=== PATIENT | male | born 1980 | race American Indian/Alaskan Native ===

== ENCOUNTER 2018-12-30 22:29 | Emergency (ER) | payer SELFPAY ==
[2018-12-30 22:45] VITALS: BP 127/91
--- NOTE | 2018-12-30 23:44 | Emergency Department Report ---
ED ENT HPI - General Chief complaint: Dental/Oral Stated complaint: TOOTHACHE Time Seen by Provider: 12/30/18 22:59 Source: patient Mode of arrival: Ambulatory Limitations: No Limitations - History of Present Illness Initial comments: Patient is a 38-year-old male presents emergency room with complaints of right upper and lower dental pain that began 3 days ago. He denies any fever, nausea, vomiting, diarrhea, any other symptoms. pt states he has had small amount of swelling to the right side of his face. States he has not seen a dentist in 2 years. He denies any past medical history. States he has an unknown allergy to penicillin. - Related Data Previous Rx's Medication Instructions Recorded Last Taken Type Clindamycin [Clindamycin CAP] 450 mg PO TID 7 Days #63 capsule 12/30/18 Unknown Rx Ibuprofen [Motrin 600 MG tab] 600 mg PO Q8H PRN #14 tablet 12/30/18 Unknown Rx Allergies Allergy/AdvReac Type Severity Reaction Status Date / Time No Known Allergies Allergy Unverified 12/30/18 22:46 ED Dental HPI - General Chief complaint: Dental/Oral Stated complaint: TOOTHACHE Time Seen by Provider: 12/30/18 22:59 Source: patient Mode of arrival: Ambulatory Limitations: No Limitations - Related Data Previous Rx's Medication Instructions Recorded Last Taken Type Clindamycin [Clindamycin CAP] 450 mg PO TID 7 Days #63 capsule 12/30/18 Unknown Rx Ibuprofen [Motrin 600 MG tab] 600 mg PO Q8H PRN #14 tablet 12/30/18 Unknown Rx Allergies Allergy/AdvReac Type Severity Reaction Status Date / Time No Known Allergies Allergy Unverified 12/30/18 22:46 ED Review of Systems ROS: Stated complaint: TOOTHACHE Other details as noted in HPI Comment: All other systems reviewed and negative ED Past Medical Hx - Past Medical History Previous Medical History?: No - Surgical History Past Surgical History?: No - Social History Smoking Status: Unknown if ever smoked Substance Use Type: None - Medications Home Medications: Home Medications Medication Instructions Recorded Confirmed Last Taken Type Clindamycin [Clindamycin CAP] 450 mg PO TID 7 Days #63 capsule 12/30/18 Unknown Rx Ibuprofen [Motrin 600 MG tab] 600 mg PO Q8H PRN #14 tablet 12/30/18 Unknown Rx ED Physical Exam - General Limitations: No Limitations General appearance: alert, in no apparent distress - Head Head exam: Present: atraumatic, normocephalic - Eye Eye exam: Present: normal appearance - ENT ENT exam: Present: normal orophraynx, mucous membranes moist, other (very poor dentition, several missing teeth, several cracked teeth, several areas of gum edema, no obvious area of fluctuance, no necrosis) - Respiratory Respiratory exam: Present: normal lung sounds bilaterally. Absent: respiratory distress, wheezes, rales, rhonchi, stridor, chest wall tenderness, accessory muscle use, decreased breath sounds, prolonged expiratory - Cardiovascular Cardiovascular Exam: Present: regular rate, normal rhythm, normal heart sounds. Absent: systolic murmur, diastolic murmur, rubs, gallop - Neurological Exam Neurological exam: Present: alert, oriented X3 - Psychiatric Psychiatric exam: Present: normal affect, normal mood - Skin Skin exam: Present: warm, dry, intact ED Course Vital Signs 12/30/18 22:44 Temperature 99 F Pulse Rate 82 Respiratory 20 Rate Blood Pressure 127/91 O2 Sat by Pulse 98 Oximetry ED Medical Decision Making - Medical Decision Making Patient is a 38-year-old male presents emergency room with complaints of right upper and lower dental pain that began 3 days ago. He denies any fever, nausea, vomiting, diarrhea, any other symptoms. pt states he has had small amount of swelling to the right side of his face. States he has not seen a dentist in 2 years. He denies any past medical history. States he has an unknown allergy to penicillin. vitals are normal. on exam: very poor dentition, several missing teeth, several cracked teeth, several areas of gum edema, no obvious area of fluctuance, no necrosis, appears to have gingivitis. pt given prescription for clindamycin and ibuprofen. advised pt to please take medication as prescribed. follow up with a dentist in the next 2-3 days. It is very important that you follow up with a dentist for a permanent solution. given list of dental clinics. Return to the emergency room for any new or worsening symptoms. Critical care attestation.: If time is entered above; I have spent that time in minutes in the direct care of this critically ill patient, excluding procedure time. ED Disposition Clinical Impression: Cracked tooth, Dental infection, Gingivitis Disposition: TO HOME OR SELFCARE Is pt being admited?: No Does the pt Need Aspirin: No Condition: Stable Instructions: Dental Caries (ED), Gingivitis (ED) Additional Instructions: Please take medication as prescribed. follow up with a dentist in the next 2-3 days. It is very important that you follow up with a dentist for a permanent solution. given list of dental clinics. Return to the emergency room for any new or worsening symptoms. Prescriptions: Clindamycin [Clindamycin CAP] 450 mg PO TID 7 Days #63 capsule Ibuprofen [Motrin 600 MG tab] 600 mg PO Q8H PRN #14 tablet PRN Reason: Pain Referrals: [facility] [Outside] - 2-3 Days Forms: Work/School Release Form(ED) Time of Disposition: 23:42 Print Language: GUAMANIAN
== END 2018-12-31 00:03 | disposition home or self-care (01) ==
LOC: ED 22:29
DX: K03.81 Cracked tooth (principal); K04.7 Periapical abscess without sinus; K05.10 Chronic gingivitis, plaque induced; Z79.899 Other long term (current) drug therapy
CPT/HCPCS: 99282